=== PATIENT | female | born 1965 | race Caucasian/White ===

== ENCOUNTER 2017-10-16 17:58 | Emergency (ER) | payer OTHER ==
--- NOTE | 2017-10-16 18:11 | PDOC ---
Rapid Medical Evaluation Time Seen by Provider: 10/16/17 18:09 Medical Evaluation: Allergies Allergy/AdvReac Type Severity Reaction Status Date / Time No Known Allergies Allergy Verified 05/24/15 10:34 I have performed a brief in-person evaluation of this patient. The patient presents with a chief complaint of: atraumatic left foot/ankle pain today; 2 motrin taken at 5:30pm Pertinent physical exam findings: Patient in a wheelchair I have ordered the following: xray left foot/ankle The patient will proceed to the ED for further evaluation.
[2017-10-16 18:13] VITALS: BP 135/88; PULSE 72; TEMP 99.8; BMI 27.1
--- NOTE | 2017-10-16 18:37 | PDOC ---
History of Present Illness - General Chief Complaint: Injury Stated Complaint: FOOT INJURY Time Seen by Provider: 10/16/17 18:09 History Source: Patient, Family (son translating per pt request) Exam Limitations: Language Barrier - History of Present Illness Initial Comments: 10/16/17 18:34 pt twisted her left foot getting up from seated position tonight. pt did not fall. pt took motrin [employer]. no history of left foot or ankle injury in the past. Occurred: reports: this evening Severity: Yes: moderate Lower Extremity Pain Location: left: foot Past History - Travel Traveled outside of the country in the last 30 days: No Close contact w/someone who was outside of country & ill: No - Past Medical History Allergies/Adverse Reactions: Allergies Allergy/AdvReac Type Severity Reaction Status Date / Time No Known Allergies Allergy Verified 05/24/15 10:34 Home Medications: Ambulatory Orders Ibuprofen [Motrin -] 400 mg PO QID 10/16/17 Losartan Potassium 50 mg PO ASDIR 10/16/17 COPD: No HTN: Yes Hypercholesterolemia: Yes (diet controlled) - Surgical History Cholecystectomy: Yes - Suicide/Smoking/Psychosocial Hx Smoking History: Never smoked Have you smoked in the past 12 months: No Information on smoking cessation initiated: No Hx Alcohol Use: No Drug/Substance Use Hx: No Substance Use Type: None Review of Systems - Review of Systems Able to Perform ROS?: Yes Is the patient limited [place] proficient: No Constitutional: No: Symptoms Reported HEENTM: No: Symptoms Reported Respiratory: No: Symptoms reported Musculoskeletal: Yes: Symptoms Reported *Physical Exam - Vital Signs Last Vital Signs Temp Pulse Resp BP Pulse Ox 99.8 F H 72 18 135/88 100 10/16/17 18:11 10/16/17 18:11 10/16/17 18:11 10/16/17 18:11 10/16/17 18:11 - Physical Exam General Appearance: Yes: Nourished, Appropriately Dressed HEENT: positive: EOMI, MARILIA Musculoskeletal: positive: Normal Inspection Extremity: positive: Normal Capillary Refill, Normal Inspection, Normal Range of Motion, Tender (lateral foot left side no swelling or deformity , nv intact strong DP pulses) Integumentary: positive: Normal Color, Dry, Warm Neurologic: positive: Fully Oriented, Alert, Normal Mood/Affect, Normal Response , Motor Strength 5/5 Procedures - Splinting Progress: 10/16/17 19:19 leonardo wrap and hard sole shoe placed to the left foot Medical Decision Making - Medical Decision Making 10/16/17 18:35 left foot twisted while getting up from seated position, pain to the lateral foot xray ordered pt states pain is relieved with motrin *DC/Admit/Observation/Transfer Diagnosis at time of Disposition: Sprain of foot Qualifiers: Encounter type: initial encounter Laterality: left Qualified Code(s): S93.602A - Unspecified sprain of left foot, initial encounter - Discharge Dispostion Disposition: HOME Condition at time of disposition: Good - Referrals Referrals: Efraín Crawford MD [Primary Care Provider] - Bennie Dorantes MD [Staff Physician] - - Patient Instructions Additional Instructions: follow with the orthopedist next week for any worsening pain apply ice every 2hrs for 20 minutes take motrin for pain , elevate the foot weight bearing as tolerated - Post Discharge Activity
== END 2017-10-16 19:33 | disposition home or self-care (01) ==
LOC: JERFT 17:58
DX: S93.602A Unspecified sprain of left foot, initial encounter (principal); X50.1XXA Overexertion from prolonged static or awkward postures, initial encounter; Y93.89 Activity, other specified; Y92.89 Other specified places as the place of occurrence of the external cause; Y99.8 Other external cause status
CPT/HCPCS: 73610-TC-LT; 73630-TC-LT; 99281-25